=== PATIENT | male | born 1985 | race Caucasian/White ===

== ENCOUNTER 2022-03-02 23:33 | Emergency (ER) | payer MEDICAID | END 2022-03-03 00:35 | disposition home or self-care (01) | LOC: JP.ED 23:33 | DX: T63.481A Toxic effect of venom of other arthropod, accidental (unintentional), initial encounter (principal); F17.210 Nicotine dependence, cigarettes, uncomplicated; Z91.030 Bee allergy status | CPT/HCPCS: 99282 ==

== ENCOUNTER 2023-03-03 12:26 | Emergency (ER) | payer MEDICAID, OTHER ==
[2023-03-03] MEDS ORDERED: Proparacaine 0.5% Ophth Soln 15 ML Bottle EYELF ONE (13:28)
== END 2023-03-03 14:16 | disposition home or self-care (01) ==
LOC: JP.ED 12:26
DX: H20.9 Unspecified iridocyclitis (principal); Z72.0 Tobacco use; Z91.030 Bee allergy status
CPT/HCPCS: 99283; A9270

== ENCOUNTER 2023-06-09 05:46 | Emergency (ER) | payer SELFPAY | END 2023-06-09 06:30 | disposition home or self-care (01) | LOC: JP.ED 05:46 | DX: K04.7 Periapical abscess without sinus (principal); F17.210 Nicotine dependence, cigarettes, uncomplicated; Z91.030 Bee allergy status | CPT/HCPCS: 99282 ==